=== PATIENT | male | born 1960 ===

== ENCOUNTER 2018-12-01 07:55 | Day surgery (SDC) | payer OTHER ==
[~2018-12-01] VITALS: Ht 172.7 cm; Wt 97.0 kg
[~2018-12-01 07:55] MED LIST: ASCO500 PO; Glucosamine Ch1 EAC4 PO; IBUP400 PO; MULTI VITAMIN1 EACH PO
== END 2018-12-01 10:10 | disposition home or self-care (01) ==
LOC: ORSCSDS 07:55
PROVIDERS: Surgery
PROC: 0DBH8ZX Excision of Cecum, Via Natural or Artificial Opening Endoscopic, Diagnostic (ICD-10-PCS; principal; 2018-12-01 09:15)
PROC: 0DBL8ZX Excision of Transverse Colon, Via Natural or Artificial Opening Endoscopic, Diagnostic (ICD-10-PCS; principal; 2018-12-01 09:15)
PROC: 0DBM8ZX Excision of Descending Colon, Via Natural or Artificial Opening Endoscopic, Diagnostic (ICD-10-PCS; principal; 2018-12-01 09:15)
DX: Z12.11 Encounter for screening for malignant neoplasm of colon (principal); Z86.010 Personal history of colon polyps; D12.4 Benign neoplasm of descending colon; D12.0 Benign neoplasm of cecum; D12.3 Benign neoplasm of transverse colon; K63.89 Other specified diseases of intestine
CPT/HCPCS: 88305; J2704; J7120

== ENCOUNTER 2022-03-18 07:42 | Day surgery (SDC) | payer OTHER ==
[~2022-03-18] VITALS: Ht 172.7 cm; Wt 121.0 kg
--- NOTE | 2022-03-18 09:03 | NUR ---
03/18/22 0903 Maya Driscoll SCOPE SERIAL NUMBER: [id number].
== END 2022-03-18 09:55 | disposition home or self-care (01) ==
LOC: ORSCSDS 07:42
PROVIDERS: Surgery
PROC: 0DBK8ZX Excision of Ascending Colon, Via Natural or Artificial Opening Endoscopic, Diagnostic (ICD-10-PCS; principal; 2022-03-18 09:00)
PROC: 0DBL8ZX Excision of Transverse Colon, Via Natural or Artificial Opening Endoscopic, Diagnostic (ICD-10-PCS; principal; 2022-03-18 09:00)
PROC: 0DBM8ZX Excision of Descending Colon, Via Natural or Artificial Opening Endoscopic, Diagnostic (ICD-10-PCS; principal; 2022-03-18 09:00)
DX: Z12.11 Encounter for screening for malignant neoplasm of colon (principal); D12.2 Benign neoplasm of ascending colon; D12.3 Benign neoplasm of transverse colon; D12.4 Benign neoplasm of descending colon; K63.89 Other specified diseases of intestine; Z86.010 Personal history of colon polyps; E78.1 Pure hyperglyceridemia; R73.03 Prediabetes; E66.01 Morbid (severe) obesity due to excess calories; Z68.41 Body mass index [BMI] 40.0-44.9, adult
CPT/HCPCS: 88305; J2704; J7120